=== PATIENT | male | born 1995 | race Caucasian/White ===

== ENCOUNTER 2018-08-15 08:44 | Emergency (ER) | payer SELFPAY ==
[~2018-08-15] VITALS: Wt 46.0 kg
[2018-08-15 08:49] VITALS: BP 128/61; PULSE 75; RESP 16
[2018-08-15] MEDS ORDERED: LIDOCAINE 1% (MPF) 5 ML VIAL INJ ONE (09:30)
[2018-08-15] MEDS ORDERED: SILVER NITRATE SWAB TOP ONE (09:30)
[2018-08-15] MEDS ORDERED: IBUP-1542 PO (10:45)
[2018-08-15] MEDS ORDERED: CEPH-443 PO (10:45)
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
== END 2018-08-15 11:46 | disposition home or self-care (01) ==
LOC: FTE 08:44
DX: S61.212A Laceration without foreign body of right middle finger without damage to nail, initial encounter (principal); V18.4XXA Pedal cycle driver injured in noncollision transport accident in traffic accident, initial encounter
CPT/HCPCS: 73140